=== PATIENT | female | born 1995 | race Caucasian/White ===

== ENCOUNTER 2018-09-18 05:49 | Emergency (ER) | payer BC, OTHER ==
[2018-09-18 06:10] VITALS: O2SAT 98
--- NOTE | 2018-09-18 07:09 | ED.PDOC ---
History of Present Illness - General Chief Complaint: ENT Problem Stated Complaint: sore throat Time Seen by Provider: 09/18/18 06:59 Source: patient Exam Limitations: no limitations - History of Present Illness Initial Comments: Patient presents with a sore throat for three days. She also has had head congestion and a non-productive cough. She says that this morning she started running a fever for the first time. No other symptoms. Works at a [employer] and has been around a lot of sick people. Timing/Duration: other - 3 days Severity: moderate Improving Factors: nothing Worsening Factors: nothing Associated Symptoms: denies symptoms Allergies/Adverse Reactions: Allergies Amoxicillin Allergy (Verified 09/18/18 05:55) Unknown Penicillins Allergy (Verified 09/18/18 05:55) Unknown Home Medications: Ambulatory Orders predniSONE [Prednisone] 20 mg PO DAILY #5 tab 06/08/18 Azithromycin [Zithromax Z-Omar] 250 mg PO DAILY #6 tab 09/18/18 Review of Systems - Review of Systems Constitutional: States: see HPI EENTM: States: see HPI Respiratory: States: see HPI Cardiology: States: no symptoms reported Gastrointestinal/Abdominal: States: no symptoms reported Genitourinary: States: no symptoms reported Musculoskeletal: States: no symptoms reported Skin: States: no symptoms reported Neurological: States: no symptoms reported Endocrine: States: no symptoms reported Hematologic/Lymphatic: States: no symptoms reported Past Medical History (General) - Patient Medical History Hx Stroke: No Hx Asthma: No Hx Cardiac Disorders: No Hx Congestive Heart Failure: No Hx Hypertension: No Hx Diabetes: No Hx Gastroesophageal Reflux: No Surgical History: cholecystectomy - Vaccination History Hx Influenza Vaccination: Yes Hx Pneumococcal Vaccination: No - Social History Hx Tobacco Use: No Hx Alcohol Use: No - Female History Patient is a Female of Child Bearing Age (10 -59 yrs old): Yes Patient : No Family Medical History - Family History Mother Family History: No Known Living Status: Still Living Physical Exam - Physical Exam General Appearance: Alert Eye Exam: bilateral normal Ears, Nose, Throat: normal pharynx, tonsillar swelling - 3+ tonsils with purulence Neck: non-tender, full range of motion, lymphadenopathy (R) Respiratory: lungs clear, normal breath sounds Cardiovascular/Chest: regular rate, rhythm, no edema Gastrointestinal/Abdominal: normal bowel sounds, non tender, soft Progress - Progress Progress: 09/18/18 07:09 Rapid strep and influenza negative. Patient appears to have developed tonsillitis. She says that azithromycin clears it up "everytime". Will give her a Z-pack. Gave E.R. warnings and care instructions. Patient voiced understanding and agreement with the plan. Departure - Departure Clinical Impression: Tonsillitis Disposition: Discharge to Home or Self Care Condition: Good Departure Forms: ED Discharge - Pt. Copy, Patient Portal Self Enrollment Diet: resume usual diet Activity: increase activity as tolerated Referrals: Sujit Dewitt MD [Primary Care Provider] - 1-2 Weeks Prescriptions: Azithromycin [Zithromax Z-Omar] 250 mg PO DAILY #6 tab Home Medications: Ambulatory Orders predniSONE [Prednisone] 20 mg PO DAILY #5 tab 06/08/18 Azithromycin [Zithromax Z-Omar] 250 mg PO DAILY #6 tab 09/18/18 Additional Instructions: Increase fluids. Use over the counter cough and cold formulas as directed. Tylenol or ibuprofen for pain or fever control.
[2018-09-18 07:19] VITALS: BP 113/79; TEMP 97.6
== END 2018-09-18 07:19 | disposition home or self-care (01) ==
LOC: ER 05:49
DX: J03.90 Acute tonsillitis, unspecified (principal); Z88.0 Allergy status to penicillin

== ENCOUNTER 2018-12-12 05:08 | Emergency (ER) | payer BC, OTHER ==
[2018-12-12 05:24] VITALS: BP 138/100; TEMP 98.2; O2SAT 98
--- NOTE | 2018-12-12 06:02 | ED.PDOC ---
History of Present Illness - General Chief Complaint: Fever Stated Complaint: flu like symptoms Time Seen by Provider: 12/12/18 05:21 Source: patient Exam Limitations: no limitations - History of Present Illness Initial Comments: the patient is a 23-year-old female presenting to the emergency room secondary to sore throat annd runny nose and a headache the last 3 days. No definite fevers. No vomiting. No nausea. No chest pain or shortness of breath. Timing/Duration: other - 3 days Severity: mild Improving Factors: nothing Worsening Factors: nothing Associated Symptoms: cough, malaise Allergies/Adverse Reactions: Allergies Amoxicillin Allergy (Verified 09/18/18 05:55) Unknown Penicillins Allergy (Verified 09/18/18 05:55) Unknown Home Medications: Ambulatory Orders predniSONE [Prednisone] 20 mg PO DAILY #5 tab 06/08/18 Azithromycin [Zithromax Z-Omar] 250 mg PO DAILY #6 tab 09/18/18 Review of Systems - Review of Systems Constitutional: States: malaise EENTM: States: nose congestion, throat pain Respiratory: States: cough Cardiology: States: no symptoms reported Gastrointestinal/Abdominal: States: no symptoms reported Genitourinary: States: no symptoms reported Musculoskeletal: States: no symptoms reported Skin: States: no symptoms reported Neurological: States: no symptoms reported Endocrine: States: no symptoms reported All other Systems: No Change from Baseline Past Medical History (General) - Patient Medical History Hx Stroke: No Hx Asthma: No Hx Cardiac Disorders: No Hx Congestive Heart Failure: No Hx Hypertension: No Hx Diabetes: No Hx Gastroesophageal Reflux: No Surgical History: cholecystectomy - Vaccination History Hx Influenza Vaccination: Yes Hx Pneumococcal Vaccination: No - Social History Hx Tobacco Use: No Hx Alcohol Use: No - Female History Patient is a Female of Child Bearing Age (10 -59 yrs old): Yes Patient : No Family Medical History - Family History Mother Family History: No Known Living Status: Still Living Physical Exam - Physical Exam General Appearance: Alert, Comfortable, No apparent distress Eye Exam: bilateral normal Ears, Nose, Throat: nasal congestion, pharyngeal erythema Neck: non-tender, full range of motion, supple Respiratory: lungs clear, normal breath sounds, no respiratory distress, no accessory muscle use Cardiovascular/Chest: normal peripheral pulses, regular rate, rhythm - mild tachycardia, no edema Peripheral Pulses: radial,right: 2+, radial,left: 2+, dorsalis pedis,right: 2+, dorsalis pedis,left: 2+ Gastrointestinal/Abdominal: non tender, soft Rectal Exam: deferred Back Exam: normal inspection, no CVA tenderness, no vertebral tenderness Extremity: normal range of motion, non-tender, normal inspection, no pedal edema, normal capillary refill Neurologic: straddle bug II-XII nml as tested, alert, normal mood/affect, oriented x 3 Skin Exam: normal color Comments: Vital Signs - 24 hr 12/12/18 05:16 Temperature 98.2 F Pulse Rate [ 112 H left] Respiratory 18 Rate Blood Pressure 138/100 [left] O2 Sat by Pulse 98 Oximetry Progress - Progress Progress: 12/12/18 06:01 the patient is a 23-year-old female presenting to the emergency room with what appears to be a common cold. She has tested negative for flu and strep. Motrin can be used to control any fever and soreness. Zyrtec twice daily can be used to control the runny nose. She needs to keep herself well-hydrated to reduce body aches. Follow-up with primary care doctor next week otherwise. Departure - Departure Clinical Impression: Common cold Disposition: Discharge to Home or Self Care Condition: Fair Departure Forms: ED Discharge - Pt. Copy, Patient Portal Self Enrollment Instructions: Viral Upper Respiratory Infection, Adult (DC) Diet: regular diet Activity: increase activity as tolerated Referrals: DANIELA CALERO MD [Primary Care Provider] - 1-2 Weeks Home Medications: Ambulatory Orders predniSONE [Prednisone] 20 mg PO DAILY #5 tab 06/08/18 Azithromycin [Zithromax Z-Omar] 250 mg PO DAILY #6 tab 09/18/18 Additional Instructions: the patient is a 23-year-old female presenting to the emergency room with what appears to be a common cold. She has tested negative for flu and strep. Motrin can be used to control any fever and soreness. Zyrtec twice daily can be used to control the runny nose. She needs to keep herself well-hydrated to reduce body aches. Follow-up with primary care doctor next week otherwise.
== END 2018-12-12 06:07 | disposition home or self-care (01) ==
LOC: ER 05:08
DX: J00 Acute nasopharyngitis [common cold] (principal); Z88.0 Allergy status to penicillin

== ENCOUNTER 2019-04-12 18:40 | Emergency (ER) | payer BC ==
[2019-04-12 19:06] VITALS: TEMP 97.5
[2019-04-12] MEDS ORDERED: MORPHINE SULFATE INJ 10 MG/ML VIAL IV ONE (19:07)
[2019-04-12] MEDS ORDERED: SODIUM CHLORIDE 0.9% 1000ML 1,000 ML IVS ONE (19:08)
--- NOTE | 2019-04-12 19:11 | ED.PDOC ---
History of Present Illness - General Chief Complaint: Problem Stated Complaint: right flank pain Time Seen by Provider: 04/12/19 19:02 Source: patient Exam Limitations: no limitations - History of Present Illness Initial Comments: Patient presents with right lower back and flank pain for one hour. It is sharp and constant. She is having trouble finding a position that makes it most comfortable. She says her urine has been more dark recently. She has a history of nephrolithiasis. Also, is s/p cholecystectomy. No other complaints. Timing/Duration: 1 hour Severity: moderate Worsening Factors: nothing Associated Symptoms: other - as in HPI Allergies/Adverse Reactions: Allergies Amoxicillin Allergy (Verified 09/18/18 05:55) Unknown Penicillins Allergy (Verified 09/18/18 05:55) Unknown Home Medications: Ambulatory Orders Acetamin W/Cod #3 Tab [Tylenol w/CODEINE #3] 1 ea PO Q6HRS PRN #6 tab 04/12/19 Sulfa/Trimeth 800/160 (Ds) Tab [Bactrim DS] 1 tablet PO BID #6 tab 04/12/19 Review of Systems - Review of Systems Constitutional: States: no symptoms reported EENTM: States: no symptoms reported Respiratory: States: no symptoms reported Cardiology: States: no symptoms reported Gastrointestinal/Abdominal: States: no symptoms reported Genitourinary: States: see HPI Musculoskeletal: States: no symptoms reported Skin: States: no symptoms reported Neurological: States: no symptoms reported Endocrine: States: no symptoms reported, excessive sweating Hematologic/Lymphatic: States: no symptoms reported Past Medical History (General) - Patient Medical History Hx Stroke: No Hx Asthma: No Hx Cardiac Disorders: No Hx Congestive Heart Failure: No Hx Hypertension: No Hx Diabetes: No Hx Gastroesophageal Reflux: No Surgical History: cholecystectomy - Vaccination History Hx Influenza Vaccination: Yes Hx Pneumococcal Vaccination: No - Social History Hx Tobacco Use: No Hx Alcohol Use: No - Female History Patient is a Female of Child Bearing Age (10 -59 yrs old): Yes Patient : No Family Medical History - Family History Mother Family History: No Known Living Status: Still Living Physical Exam - Physical Exam General Appearance: Obvious distress - Moderate Eye Exam: bilateral normal Ears, Nose, Throat: normal ENT inspection Neck: non-tender, full range of motion, supple Respiratory: lungs clear, normal breath sounds Cardiovascular/Chest: normal peripheral pulses, regular rate, rhythm, no edema Gastrointestinal/Abdominal: normal bowel sounds, non tender, soft Back Exam: CVA tenderness (R) Extremity: normal range of motion, non-tender, normal inspection Neurologic: no motor/sensory deficits, alert, normal mood/affect, oriented x 3 Skin Exam: normal color Lymphatic: no adenopathy Progress - Progress Progress: 04/12/19 20:10 Laboratory Tests 04/12/19 04/12/19 04/12/19 19:08 19:08 19:08 WBC 7.9 RBC 4.98 Hgb 14.4 Hct 42.9 MCV 86.0 MCH 29.0 MCHC 33.7 RDW 12.5 Plt Count 366 MPV 8.7 Absolute Neuts (auto) 4.10 Absolute Lymphs (auto) 2.90 Absolute Monos (auto) 0.70 Absolute Eos (auto) 0.10 Absolute Basos (auto) 0.10 Neutrophils % 52.0 Lymphocytes % 36.2 Monocytes % 9.4 H Eosinophils % 1.4 Basophils % 1.0 Sodium 135 Potassium 3.4 L Chloride 105 Carbon Dioxide 21 Anion Gap 12.4 BUN 12 Creatinine 0.77 BUN/Creatinine Ratio 15.6 Random Glucose 96 Serum Osmolality 269.7 L Calcium 8.9 Total Bilirubin 0.9 AST 22 ALT 33 Alkaline Phosphatase 92 Serum Total Protein 7.7 Albumin 4.1 Globulin 3.6 H Albumin/Globulin Ratio 1.1 Urine Color Urine Appearance Urine pH Ur Specific [place] Urine Protein Urine Glucose (UA) Urine Ketones Urine Blood Urine Nitrite Urine Bilirubin Urine Urobilinogen Ur Leukocyte Esterase Urine RBC Urine WBC Ur Epithelial Cells Urine Bacteria Urine HCG, Qual Negative 04/12/19 19:22 WBC RBC Hgb Hct MCV MCH MCHC RDW Plt Count MPV Absolute Neuts (auto) Absolute Lymphs (auto) Absolute Monos (auto) Absolute Eos (auto) Absolute Basos (auto) Neutrophils % Lymphocytes % Monocytes % Eosinophils % Basophils % Sodium Potassium Chloride Carbon Dioxide Anion Gap BUN Creatinine BUN/Creatinine Ratio Random Glucose Serum Osmolality Calcium Total Bilirubin AST ALT Alkaline Phosphatase Serum Total Protein Albumin Globulin Albumin/Globulin Ratio Urine Color Yellow Urine Appearance Sl cloudy Urine pH 5.5 Ur Specific [place] >= 1.030 Urine Protein 30 Urine Glucose (UA) Negative Urine Ketones Negative Urine Blood Large H Urine Nitrite Negative Urine Bilirubin Small H Urine Urobilinogen 0.2 Ur Leukocyte Esterase Moderate H Urine RBC Tntc H Urine WBC Tntc H Ur Epithelial Cells 3-5 Urine Bacteria 4+ H Urine HCG, Qual UA showed hematuria and possible UTI. CT ab/pelvis showed 2 mm right uretral stone. Patient's pain improved significantly after morphine 4 mg IV x one. She was given a Bactrimm DS in the E.D. with 3 more days supply as well as RX for Tylenol #3. Care instructions given. E.R. warnings given. Questions were elicited and an swered. Patient voiced understanding and agreement with the plan. Departure - Departure Clinical Impression: Urinary tract infection, Ureteral stone Disposition: Discharge to Home or Self Care Condition: Good Departure Forms: ED Discharge - Pt. Copy, Patient Portal Self Enrollment Instructions: DI for Urinary Tract Infection (UTI), DI for Kidney Stones Diet: other - increase oral fluids Activity: increase activity as tolerated Referrals: DANIELA CALERO MD [Primary Care Provider] - 1-2 Weeks Prescriptions: Acetamin W/Cod #3 Tab [Tylenol w/CODEINE #3] 1 ea PO Q6HRS PRN #6 tab PRN Reason: Pain Sulfa/Trimeth 800/160 (Ds) Tab [Bactrim DS] 1 tablet PO BID #6 tab Home Medications: Ambulatory Orders Acetamin W/Cod #3 Tab [Tylenol w/CODEINE #3] 1 ea PO Q6HRS PRN #6 tab 04/12/19 Sulfa/Trimeth 800/160 (Ds) Tab [Bactrim DS] 1 tablet PO BID #6 tab 04/12/19 Additional Instructions: Take medications as prescribed. Do not drive or operate heavy machinery after taking the Tylenol #3 (acetaminophen with codeine_. Return to the E.R. or your regular doctor for temperature above 100.3 or failure of the pain to resolve in 2-3 days.
[2019-04-12 19:58] VITALS: BP 126/78; O2SAT 96
--- NOTE | 2019-04-12 20:06 | CT ---
EXAM: CT Abdomen and Pelvis Without Intravenous Contrast CLINICAL HISTORY: 23 years old and is Female; stone protocol, hematuria and pyuria TECHNIQUE: Axial computed tomography images of the abdomen and pelvis without intravenous contrast. Sagittal and coronal reformatted images were created and reviewed. This CT exam was performed using one or more of the following dose reduction techniques: automated exposure control, adjustment of the mA and/or kV according to patient size, and/or use of iterative reconstruction technique. COMPARISON: No relevant prior studies available. FINDINGS: Limitations: None. Lung bases: Unremarkable. No mass. No consolidation. ABDOMEN: Liver: Fatty liver. Gallbladder and bile ducts: Cholecystectomy. No ductal dilation. Pancreas: Unremarkable. No ductal dilation. Spleen: Unremarkable. No splenomegaly. Adrenals: Unremarkable. No mass. Kidneys and ureters: 2 mm distal right ureteral stone about 2 cm proximal to the UVJ. Four stones in the right kidney the largest measuring about 3 mm. No hydronephrosis. There is a punctate nonobstructing left kidney stone. Stomach and bowel: Unremarkable. No obstruction. No mucosal thickening. PELVIS: Appendix: No findings to suggest acute appendicitis. Bladder: Unremarkable. No stones. Reproductive: Unremarkable as visualized. ABDOMEN and PELVIS: Intraperitoneal space: Unremarkable. No free air. No significant fluid collection. Bones/joints: No acute fracture. No dislocation. Soft tissues: Unremarkable. Vasculature: Unremarkable. No abdominal aortic aneurysm. Lymph nodes: Unremarkable. No enlarged lymph nodes. IMPRESSION: 2 mm distal right ureteral stone without hydronephrosis. Electronically signed by: Debbie Berrios MD 04/12/2019 8:05 PM CDT
[2019-04-12] MEDS ORDERED: ACETAMINOPHEN W/COD #3 TAB (ER Disp) PO ONE (20:16)
[2019-04-12] MEDS ORDERED: SULFA/TRIMETH 800/160 (DS) TAB 1 EA TAB PO ONE (20:16)
== END 2019-04-12 20:31 | disposition home or self-care (01) ==
LOC: ER 18:40
DX: N39.0 Urinary tract infection, site not specified (principal); N20.1 Calculus of ureter; N20.0 Calculus of kidney; Z88.0 Allergy status to penicillin
CPT/HCPCS: 36415; 74176; 80053; 81001; 81025; 85025; 87086; J2270; J7030

== ENCOUNTER 2019-11-03 11:48 | Emergency (ER) | payer SELFPAY ==
[2019-11-03] MEDS ORDERED: PHENAZOPYRIDINE HCL 200 MG TAB PO ONE (14:45)
[2019-11-03 14:48] VITALS: BP 134/85; TEMP 98.1
--- NOTE | 2019-11-03 15:06 | ED.PDOC ---
History of Present Illness - General Chief Complaint: Problem Time Seen by Provider: 11/03/19 12:02 Source: patient Exam Limitations: no limitations - History of Present Illness Initial Comments: CHART REVIEWER: PLEASE NOTE, "GENITOURINARY MALE" WAS SELECTED IN ERROR. THE PATIENT IS A FEMALE AND "GENITOURINARY FEMALE" CHART TEMPLATE SHOULD HAVE BEEN SELECTED. THE CHART CONTENT IS ACCURATE, CHARTED. ~ DR. Rasheed Timing/Duration: yesterday Quality: burning Onset Location: suprapubic Radiation: none Activites at Onset: none Improving Factors: nothing Associated Symptoms: dysuria Allergies/Adverse Reactions: Allergies Amoxicillin Allergy (Verified 09/18/18 05:55) Unknown Penicillins Allergy (Verified 09/18/18 05:55) Unknown Home Medications: Ambulatory Orders Acetamin W/Cod #3 Tab [Tylenol w/CODEINE #3] 1 ea PO Q6HRS PRN #6 tab 04/12/19 Sulfa/Trimeth 800/160 (Ds) Tab [Bactrim DS] 1 tablet PO BID #6 tab 04/12/19 Sulfa/Trimeth 800/160 (Ds) Tab [Bactrim DS Tab] 1 unit PO BID #6 tab 11/03/19 Review of Systems - Review of Systems Constitutional: States: no symptoms reported. Denies: chills, fever EENTM: States: no symptoms reported Respiratory: States: no symptoms reported Cardiology: States: no symptoms reported Gastrointestinal/Abdominal: States: no symptoms reported Genitourinary: States: dysuria, frequency Musculoskeletal: States: no symptoms reported Skin: States: no symptoms reported Neurological: States: no symptoms reported Endocrine: States: no symptoms reported Hematologic/Lymphatic: States: no symptoms reported All other Systems: Reviewed and Negative Past Medical History (General) - Patient Medical History Hx Stroke: No Hx Asthma: No Hx Cardiac Disorders: No Hx Congestive Heart Failure: No Hx Hypertension: No Hx Diabetes: No Hx Gastroesophageal Reflux: No Surgical History: cholecystectomy - Vaccination History Hx Influenza Vaccination: Yes Hx Pneumococcal Vaccination: No - Social History Hx Tobacco Use: No Hx Alcohol Use: No - Female History Patient : No Family Medical History - Family History Mother Family History: No Known Living Status: Still Living Physical Exam - Physical Exam General Appearance: Alert, No apparent distress Eyes, Ears, Nose, Throat Exam: PERRL/EOMI, normal ENT inspection Neck: full range of motion, normal inspection Cardiovascular/Respiratory: regular rate, rhythm, no M/R/G Gastrointestinal/Abdominal: normal bowel sounds, non tender, soft Back Exam: normal inspection, CVA tenderness (R) Extremity: normal range of motion, normal inspection Neurologic: no motor/sensory deficits, normal mood/affect Skin Exam: normal color, warm/dry Lymphatic: no adenopathy Progress - Results/Orders Results/Orders: UTI PER UA. AFEBRILE, NO CONCERNS FOR PYELONEPHRITIS. RX BACTRIM. ORDERING URINE CX. Departure - Departure Clinical Impression: Microscopic hematuria, Dysuria UTI (urinary tract infection) Qualifiers: Urinary tract infection type: acute cystitis Hematuria presence: without hematuria Qualified Code(s): N30.00 - Acute cystitis without hematuria Disposition: Discharge to Home or Self Care Condition: Good Departure Forms: ED Discharge - Pt. Copy, Patient Portal Self Enrollment Prescriptions: Sulfa/Trimeth 800/160 (Ds) Tab [Bactrim DS Tab] 1 unit PO BID #6 tab Home Medications: Ambulatory Orders Acetamin W/Cod #3 Tab [Tylenol w/CODEINE #3] 1 ea PO Q6HRS PRN #6 tab 04/12/19 Sulfa/Trimeth 800/160 (Ds) Tab [Bactrim DS] 1 tablet PO BID #6 tab 04/12/19 Sulfa/Trimeth 800/160 (Ds) Tab [Bactrim DS Tab] 1 unit PO BID #6 tab 11/03/19
[2019-11-03] MEDS ORDERED: SULFA/TRIMETH 800/160 (DS) TAB 1 EA TAB PO ONE (15:42)
--- NOTE | 2019-11-03 15:47 | ED.PDOC ---
History of Present Illness - General Chief Complaint: Problem Time Seen by Provider: 11/03/19 12:02 Source: patient Exam Limitations: no limitations - History of Present Illness Timing/Duration: yesterday Quality: burning Onset Location: suprapubic Radiation: none Activites at Onset: none Improving Factors: nothing Worsening Factors: nothing Associated Symptoms: urinary frequency Allergies/Adverse Reactions: Allergies Amoxicillin Allergy (Verified 09/18/18 05:55) Unknown Penicillins Allergy (Verified 09/18/18 05:55) Unknown Home Medications: Ambulatory Orders Acetamin W/Cod #3 Tab [Tylenol w/CODEINE #3] 1 ea PO Q6HRS PRN #6 tab 04/12/19 Sulfa/Trimeth 800/160 (Ds) Tab [Bactrim DS] 1 tablet PO BID #6 tab 04/12/19 Sulfa/Trimeth 800/160 (Ds) Tab [Bactrim DS Tab] 1 unit PO BID #6 tab 11/03/19 Review of Systems - Review of Systems Constitutional: Denies: chills, fever EENTM: States: no symptoms reported Respiratory: States: no symptoms reported Cardiology: States: no symptoms reported Gastrointestinal/Abdominal: States: no symptoms reported Genitourinary: States: dysuria, frequency. Denies: discharge, hematuria Musculoskeletal: States: no symptoms reported Skin: States: no symptoms reported Neurological: States: no symptoms reported Endocrine: States: no symptoms reported Hematologic/Lymphatic: States: no symptoms reported All other Systems: Reviewed and Negative Past Medical History (General) - Patient Medical History Hx Stroke: No Hx Asthma: No Hx Cardiac Disorders: No Hx Congestive Heart Failure: No Hx Hypertension: No Hx Diabetes: No Hx Gastroesophageal Reflux: No Surgical History: cholecystectomy - Vaccination History Hx Influenza Vaccination: Yes Hx Pneumococcal Vaccination: No - Social History Hx Tobacco Use: No Hx Alcohol Use: No - Female History Patient : No Family Medical History - Family History Mother Family History: No Known Living Status: Still Living Physical Exam - Physical Exam General Appearance: Alert, No apparent distress Eyes, Ears, Nose, Throat Exam: PERRL/EOMI, normal ENT inspection Neck: non-tender, full range of motion Cardiovascular/Respiratory: regular rate, rhythm, no M/R/G Gastrointestinal/Abdominal: normal bowel sounds, soft Back Exam: normal inspection, CVA tenderness (R) Extremity: normal range of motion, non-tender Neurologic: alert, normal mood/affect Skin Exam: normal color, warm/dry Lymphatic: no adenopathy Progress - Results/Orders Results/Orders: HCG NEG. UA - UTI. BLOOD, LEUK EST, WBC, BACTERIA. Departure - Departure Clinical Impression: Microscopic hematuria, Dysuria UTI (urinary tract infection) Qualifiers: Urinary tract infection type: acute cystitis Hematuria presence: without hematuria Qualified Code(s): N30.00 - Acute cystitis without hematuria Disposition: Discharge to Home or Self Care Condition: Good Departure Forms: ED Discharge - Pt. Copy, Patient Portal Self Enrollment Diet: resume usual diet Activity: increase activity as tolerated Prescriptions: Sulfa/Trimeth 800/160 (Ds) Tab [Bactrim DS Tab] 1 unit PO BID #6 tab Home Medications: Ambulatory Orders Acetamin W/Cod #3 Tab [Tylenol w/CODEINE #3] 1 ea PO Q6HRS PRN #6 tab 04/12/19 Sulfa/Trimeth 800/160 (Ds) Tab [Bactrim DS] 1 tablet PO BID #6 tab 04/12/19 Sulfa/Trimeth 800/160 (Ds) Tab [Bactrim DS Tab] 1 unit PO BID #6 tab 11/03/19
[2019-11-03 17:14] VITALS: O2SAT 99
== END 2019-11-03 16:30 | disposition home or self-care (01) ==
LOC: ER 11:48
DX: N30.01 Acute cystitis with hematuria (principal); Z88.0 Allergy status to penicillin